=== PATIENT | female | born 1985 | race Caucasian/White ===

== ENCOUNTER 2023-12-07 11:00 | Outpatient (CLI) | payer OTHER, SELFPAY ==
[2023-12-07 11:07] VITALS: BP 117/75; PULSE 82; RESP 20; TEMP 36.8; O2SAT 100
[2023-12-07 11:55] VITALS: PULSE 74; O2SAT 100
[2023-12-07 12:00] VITALS: O2SAT 100
[2023-12-07] MEDS: Dexamethasone Sod. Phos./Pres-Free 10 MG/ML VIAL IJ (12:17)
[2023-12-07] MEDS: Bupivacaine 0.25% Pres-Free 30 ML VIAL IJ (12:18)
[2023-12-07] MEDS: Nerve Block Tray 1 EACH MC (12:19)
--- NOTE | 2023-12-12 08:32 | PDOC.PAIN_ITS ---
Date of service: 12/07/23 Time of Service: 12:00 Pain Managment Procedure Note Procedure Note Procedure Note: PROCEDURE NOTE RIGHT LESSER OCCIPITAL NERVE BLOCK #1 Date of Service: December 07, 2023 Patient:Anna Zamorano? Provider:? Kit Leung DO, MPH Anna Damian [facility] Pre-operative diagnosis: Right Occipital Neuralgia Post-operative diagnosis: Same Pre-procedure pain: VAS= 5/10 COMMENTS: I previously evaluated her in the clinic Anna Damian was greeted by the nurse who verified patients name and . Anna was interviewed and the medical record reviewed. There were no medical, pharmacologic, radiographic, or other structural contraindications to attempting RIGHTlesser occipital nerve blocks. Risks and expected side effects as well as potential benefit of the procedure were reviewed with Anna, and the patient's voiced concerns were addressed.?The printed consent form was signed.? Standard time-out procedure was performed. Anna was placed in the prone position on the examination table. The occipital protuberance was palpated. The skin 2 inches lateral to the p rotuberance was thoroughly prepared with an alcohol preparation. Next, I entered the skin with a 1.5 25G spinal needle. Aspiration revealed no blood or other fluid. Next, I injected 1 ml of preservative-free 1% Lidocaine then 1 cc of Dexamethasone (10mg/cc) and followed this with 5 cc of 0.25% Bupivacaine and removed the needle. There was no unusual discomfort expressed by Anna. The needles were withdrawn without difficulty. Anna was observed and was without hemodynamic, neurologic, or allergic reactions.? Follow up plans and appointments were discussed with Anna.? Post procedure instruction was given as documented in nursing documentation and having met discharge criteria, [facility] ? COMMENTS: No apparent complications. Post-procedure pain: VAS= 1/10. Anna to contact [facility] as needed. I personally completed the entire procedure. KIT LEUNG DO, MPH [employer]BPM[facility] - Subspecialty board certification in Pain Medicine [facility]
== END 2023-12-07 11:01 | disposition home or self-care (01) ==
LOC: PC 11:00
PROVIDERS: PCP Physician Assistant; Visit Provider Preventive Medicine Occupational Medicine
DX: M54.81 Occipital neuralgia (principal)
CPT/HCPCS: 64450; J0665; J1100